=== PATIENT | female | born 1935 | race Caucasian/White ===

== ENCOUNTER → 2018-10-21 09:30 | Outpatient (CLI) | payer MEDICARE, OTHER, SELFPAY ==
--- NOTE | 2018-10-21 | DI.US.S_ITS ---
PROCEDURE: US ABDOMEN COMPLETE INDICATIONS: NONIFECTIVE GASTROENTERITIS TECHNIQUE: Real-time scanning was performed of the abdominal and retroperitoneal organs, with image documentation. COMPARISON: None. FINDINGS: Liver: Liver is normal in size and homogeneous in echotexture. There are several small, fairly complex cysts in the liver. In the left hepatic lobe, and a couple of cysts measuring 0.9 x 0.6 x 0.8 cm and 1.4 x 0.6 x 1.0 cm. There is a 2.0 x 1.8 x 1.3 cm cyst in the right hepatic lobe. Gallbladder: No gallstones. No gallbladder wall thickening, pericholecystic fluid or sonographic San's sign. Biliary ducts: Intrahepatic bile ducts are non-dilated. Extrahepatic bile duct caliber measures 3.6 mm. Normal is 6-7 mm or less in diameter, or 10 mm or less post-cholecystectomy. Pancreas: Visualized portions of the pancreas are sonographically normal. Spleen: Spleen is normal in size and homogeneous in echotexture. Kidneys: Kidneys are normal in size and echotexture. Right kidney measures 10.0 cm long; left kidney measures 10.3 cm long. No hydronephrosis or nephrolithiasis. No solid masses. Aorta: Visualized aorta is normal in caliber at less than 3 cm. Iliacs: Proximal common iliac arteries are normal in caliber at less than 2.5 cm. IVC: Intrahepatic inferior vena cava is patent. Miscellaneous: No free abdominal fluid. IMPRESSION: 1. There several mildly complex cysts in the liver. 2. Otherwise normal abdominal ultrasound exam. Dictated by: Naheed Rodriguez M.D. on 10/21/2018 at 12:48 Approved by: Naheed Rodriguez M.D. on 10/21/2018 at 14:05
== END ==
PROVIDERS: PCP Family Medicine; Visit Provider Family Medicine
DX: K52.9 Noninfective gastroenteritis and colitis, unspecified (principal); K76.89 Other specified diseases of liver
CPT/HCPCS: 76700